=== PATIENT | male | born 1950 | race Caucasian/White ===

== ENCOUNTER → 2017-07-11 | Outpatient (CLI) | payer BC ==
[~2017-07-11] MED LIST: DXY100 PO; GADAVIST IV PRN
--- NOTE | 2017-07-11 08:21 | DIAGNOSTIC IMAGING REPORT ---
MRI LEFT KNEE WITHOUT A WITH CONTRAST CLINICAL HISTORY: TIBIAL PLATEAU FRACTURE left knee pain. History of lymphocytic leukemia. COMPARISON STUDY: No previous studies for comparison. FINDINGS: Imaging was performed in the sagittal, axial, and coronal planes before and after the administration of 8 cc of intravenous Gadavist. There are no prior films available for correlative purposes. There are no areas of marrow edema to indicate a fracture. There are cystic changes at the level of the femoral notch and tibial spine region. The quadriceps and patellar tendons appear intact. There is mucoid degeneration of the anterior cruciate ligament. Posterior cruciate ligament appears intact. There is mucoid degeneration within the menisci. No meniscal tears are visualized. There is no evidence of medial or lateral collateral ligament disruption. There is mild nonspecific synovial enhancement. This could be normal or indicate a minimal synovitis. There are small popliteal cyst IMPRESSION: 1. No evidence of occult fracture 2. Mucoid degeneration within the menisci. No evidence of meniscal tear 3. Mucoid degeneration of the anterior cruciate ligament. No evidence of cruciate ligament tear 4. No evidence of collateral ligament disruption 5. Mild synovial enhancement. While this can be normal, a mild synovitis could appear similar. 6. Small popliteal cyst Electronically signed by: Mitul Ibarra M.D. 07/11/2017 8:20 AM Dictated Date/Time: 07/11/2017 8:10 AM
== END | disposition home or self-care (01) ==
LOC: C.MRIBC 07:20
PROVIDERS: ATTEND Internal Medicine
DX: M23.307 Other meniscus derangements, unspecified meniscus, left knee (principal); M23.612 Other spontaneous disruption of anterior cruciate ligament of left knee; M71.22 Synovial cyst of popliteal space [Baker], left knee; C91.90 Lymphoid leukemia, unspecified not having achieved remission